=== PATIENT | female | born 1960 | race Caucasian/White ===

== ENCOUNTER → 2019-06-24 10:00 | Outpatient (BNVA) | payer MEDICARE, OTHER, SELFPAY | PROVIDERS: PCP Family Medicine; Referring Provider Family Medicine; Visit Provider Internal Medicine Rheumatology | DX: M34.9 Systemic sclerosis, unspecified (principal); Z79.899 Other long term (current) drug therapy; L03.012 Cellulitis of left finger; M35.00 Sjogren syndrome, unspecified; E55.9 Vitamin D deficiency, unspecified; L98.491 Non-pressure chronic ulcer of skin of other sites limited to breakdown of skin | CPT/HCPCS: 36415; 80053; 85007; 85027; 99214 ==

== ENCOUNTER → 2021-11-07 11:05 | Outpatient (BNVA) | payer MEDICARE, OTHER, SELFPAY | PROVIDERS: PCP Family Medicine; Referring Provider Internal Medicine Rheumatology; Visit Provider Specialist | DX: H54.62 Unqualified visual loss, left eye, normal vision right eye (principal); R53.1 Weakness | CPT/HCPCS: 99204 ==

== ENCOUNTER 2021-12-26 07:18 | Outpatient (CLI) | payer MEDICARE, OTHER, SELFPAY ==
--- NOTE | 2021-12-26 07:30 | MR_ITS ---
WS: [id number] MRA HEAD TECHNIQUE: Axial 3-D TOF images obtained with axial images and axial, sagittal, and coronal 2-D refor matted images. CLINICAL INFORMATION: R29.90 - Unspecified symptoms and signs involving the ner... COMPARISON: Outside MRI September 08, 2021 FINDINGS: LEFT ICA is occluded at the skull base. This can be further evaluated CTA neck. Petrous an d cavernous segments LEFT intracranial ICA appear occluded. This appears unchanged since the outside MRI September 08, 2021 Moderate intracranial atheromatous disease. Distal vertebral arteries are patent. Basilar artery is p atent. Somewhat diminutive basilar artery with dominant anterior circulation. Patent LEFT posterior c ommunicating artery with stenosis at the P-comm P1 junction. Distal PSYCHOLOGY ASSISTANT vessels appear patent. RIGHT ICA is patent at the skull base. Tortuous cavernous carotid artery. Hypoplastic A1 segments. No rmal vascularity to the RIGHT MCA territory. LEFT MCA fills via the posterior circulation with cross- filling from the anterior communicating artery with relatively normal vascularity to the LEFT MCA ter ritory. Small aneurysm or infundibulum RIGHT MCA trifurcation measuring 3 mm. MR/MR angio head wo con [id number] IMPRESSION: Some images degraded by motion artifact. 1. LEFT ICA is occluded at the skull base unchanged from the outside MRI. This can be further evaluated with CTA head and neck. 2. Dominant anterior circulation. Small but patent basilar artery. 3. Patent LEFT posterior communicating artery with stenosis at the P-comm/PSYCHOLOGY ASSISTANT junction. Normal vascularity to the distal PSYCHOLOGY ASSISTANT territories. 4. Relatively normal vascularity to the RYLEE and MCA territories bilaterally. 5. LEFT MCA territory fills via the posterior circulation and cross filling fr om the anterior communicating artery. 6. Small aneurysm or infundibulum RIGHT MCA trifurcation measuring 3 mm. 7. Moderate intracranial atheromatous disease.
== END 2021-12-26 07:19 | disposition home or self-care (01) ==
PROVIDERS: PCP Family Medicine; Visit Provider Specialist
DX: R29.90 Unspecified symptoms and signs involving the nervous system (principal)
CPT/HCPCS: 70544

== ENCOUNTER → 2021-12-28 10:35 | Outpatient (BNVA) | payer MEDICARE, OTHER, SELFPAY | PROVIDERS: PCP Family Medicine; Visit Provider Specialist | DX: H34.12 Central retinal artery occlusion, left eye (principal); I65.22 Occlusion and stenosis of left carotid artery; D68.51 Activated protein C resistance; M79.89 Other specified soft tissue disorders; M34.9 Systemic sclerosis, unspecified; M79.18 Myalgia, other site | CPT/HCPCS: 99214 ==

== ENCOUNTER 2022-01-26 08:53 | Outpatient (CLI) | payer MEDICARE, OTHER, SELFPAY ==
--- NOTE | 2022-01-26 09:30 | USCV_ITS ---
Andree Carr Age: 62 Gender: F : 1960 Exam Date: 01/26/2022 09:25 Ordering Phys: Princess Chase MD Technologist: Amber Chapman Exam Location: [facility] – [place] Indication: history of emboli , swellling PROCEDURES: Venous duplex imaging was performed in only the left lower extremity. The following venous structures were evaluated: common femoral vein, profunda vein, proximal portion of the greater saphenous vein, superficial femoral vein, and the popliteal vein. In addition, the posterior tibial and peroneal trunk were evaluated. FINDINGS: Normal 2-D Doppler and augmentation and compressibility throughout the lower extremity venous structures. Additional imaging through the proximal calf veins also reveals no thrombus. Limited evaluation of the greater saphenous vein is patent with no thrombus.. CONCLUSIONS No evidence of left lower extremity DVT. Frandy Tineo MD (Electronically Signed) Final Date: 26 January 2022 13:24 S
== END 2022-01-26 08:54 | disposition home or self-care (01) ==
LOC: RAD 08:54
PROVIDERS: PCP Family Medicine; Visit Provider Specialist
DX: I82.409 Acute embolism and thrombosis of unspecified deep veins of unspecified lower extremity (principal); M79.89 Other specified soft tissue disorders
CPT/HCPCS: 93971

== ENCOUNTER → 2022-03-07 09:59 | Outpatient (BNVA) | payer MEDICARE, OTHER, SELFPAY | PROVIDERS: PCP Family Medicine; Visit Provider Internal Medicine Cardiovascular Disease | DX: H34.10 Central retinal artery occlusion, unspecified eye (principal) | CPT/HCPCS: 99204 ==

== ENCOUNTER 2022-03-10 07:22 | Outpatient (CLI) | payer MEDICARE, OTHER, SELFPAY ==
--- NOTE | 2022-03-10 07:30 | MR_ITS ---
WS: [id number] MRA CAROTID ARTERIES HISTORY: I65.22 - Occlusion and stenosis of left carotid artery COMPARISON: Prior MR angiogram 12/26/2021 TECHNIQUE: MRA is performed without intravenous gadolinium. MIP and source images are reviewed. Right: Proximal common carotid artery is difficult to visualize due to the upper thorax. Mildly tortu ous but patent carotid artery. Internal and external carotid arteries are both patent. Beyond the sku ll base the carotid artery is very poorly visualized without IV contrast. No occlusions. Left: Small caliber LEFT common carotid artery as it arises from the arch. Towards the bifurcation th ere is smooth tapering of the common carotid artery. Prior to the skull base is a complete occlusion with loss of flow identified by MRI. LEFT ICA appears completely occluded beyond the skull base. Vertebral Arteries: Patent through the cervical region. Normal appearance to the basilar artery. The origins of each vertebral artery are not visualized. MR/MR angio neck wo con [id number] IMPRESSION: 1. Patent RIGHT cervical carotid artery with no significant stenosis. 2. Known occluded LEFT carotid artery beginning just proximal to the skull bas e. 3. Normal caliber vertebral arteries.
== END 2022-03-10 07:23 | disposition home or self-care (01) ==
LOC: RAD 07:23
PROVIDERS: PCP Family Medicine; Visit Provider Specialist
DX: I65.22 Occlusion and stenosis of left carotid artery (principal)
CPT/HCPCS: 70547

== ENCOUNTER → 2022-03-28 08:16 | Outpatient (BNVA) | payer MEDICARE, OTHER, SELFPAY | PROVIDERS: PCP Family Medicine; Visit Provider Specialist | DX: I65.22 Occlusion and stenosis of left carotid artery (principal); D68.51 Activated protein C resistance; Z86.79 Personal history of other diseases of the circulatory system | CPT/HCPCS: 99214 ==

== ENCOUNTER → 2022-11-27 14:01 | Outpatient (BNVA) | payer MEDICARE, OTHER, SELFPAY | PROVIDERS: PCP Family Medicine; Visit Provider Dermatology | DX: L85.8 Other specified epidermal thickening (principal) | CPT/HCPCS: 11102; 17110; 99202 ==

== ENCOUNTER → 2022-12-06 07:59 | Outpatient (BNVA) | payer MEDICARE, OTHER, SELFPAY | PROVIDERS: PCP Family Medicine; Visit Provider Dermatology | DX: C44.622 Squamous cell carcinoma of skin of right upper limb, including shoulder (principal) | CPT/HCPCS: 11603; 12034 ==

== ENCOUNTER → 2023-02-20 15:32 | Outpatient (BNVA) | payer MEDICARE, OTHER, SELFPAY | PROVIDERS: PCP Family Medicine; Visit Provider Dermatology | DX: L92.3 Foreign body granuloma of the skin and subcutaneous tissue (principal); L72.0 Epidermal cyst; L57.8 Other skin changes due to chronic exposure to nonionizing radiation; L81.4 Other melanin hyperpigmentation; L82.1 Other seborrheic keratosis; Z08 Encounter for follow-up examination after completed treatment for malignant neoplasm; Z85.828 Personal history of other malignant neoplasm of skin | CPT/HCPCS: 99213 ==

== ENCOUNTER 2023-02-26 06:00 | Outpatient (RCR) | payer MEDICARE, OTHER, SELFPAY | END 2023-03-20 23:59 | disposition home or self-care (01) | LOC: MOT 06:00 | PROVIDERS: Visit Provider Family Medicine | DX: R60.0 Localized edema (principal) | CPT/HCPCS: 97140; 97166 ==

== ENCOUNTER → 2023-03-14 14:34 | Outpatient (BNVA) | payer MEDICARE, OTHER, SELFPAY | PROVIDERS: Visit Provider Nurse Practitioner Family | DX: M79.604 Pain in right leg (principal); M25.571 Pain in right ankle and joints of right foot | CPT/HCPCS: 73590; 73610 ==

== ENCOUNTER 2023-03-26 14:11 | Outpatient (RCR) | payer MEDICARE, OTHER, SELFPAY | END 2023-03-28 23:59 | disposition home or self-care (01) | LOC: MOT 14:11 | PROVIDERS: Visit Provider Family Medicine | DX: R60.9 Edema, unspecified (principal) | CPT/HCPCS: 97140 ==

== ENCOUNTER → 2023-07-23 14:42 | Outpatient (BNVA) | payer MEDICARE, OTHER, SELFPAY | PROVIDERS: Visit Provider Dermatology | DX: D48.5 Neoplasm of uncertain behavior of skin (principal); L21.8 Other seborrheic dermatitis; B07.8 Other viral warts; L59.0 Erythema ab igne [dermatitis ab igne]; Z85.828 Personal history of other malignant neoplasm of skin; M34.83 Systemic sclerosis with polyneuropathy; M34.1 CR(E)ST syndrome | CPT/HCPCS: 99214 ==

== ENCOUNTER 2023-07-27 06:06 | Outpatient (CLI) | payer MEDICARE, OTHER, SELFPAY ==
--- NOTE | 2023-07-27 06:30 | USCV_ITS ---
Andree Carr Age: 63 Gender: F : 1960 Exam Date: 07/27/2023 06:26 Ordering Phys: Melia Merida Technologist: KEY Exam Location: [facility] – [place] Indication: Bruit Risk Factors: Previous Vascular Surgery: Right Brachial BP: / Left Brachial BP: / Right Left Velocity (cm/s) Spectral Plaque Velocity (cm/s) Spectral Plaque Syst/Diast Broadening Syst/Diast Broadening 106.10/18.00 Prox CCA 27.00 / 4.90 86.70/ 23.20 Mid CCA / 84.10/ 21.30 Distal CCA / 108.60/27.40 Prox ICA / 160.20/38.70 Mid ICA / 150.50/38.70 Distal ICA / 134.50 ECA 39.10 1.90 ICA/CCA 1.00 Antegrade Vertebral Antegrade 97.00/ 26.50 cm/s 67.30/ 29.10 cm/s Tri Subclavian Tri 172.3 67.70 0 CONCLUSIONS Right ICA stenosis <50%. Moderate atheromatous plaque right carotid bulb/ICA. Left ICA appears occluded. Tiny amount of flow proximal CCA. Recommend CTA in further evaluation Normal antegrade Doppler flow noted in the right vertebral artery. Normal antegrade Doppler flow noted in the left vertebral artery. Frandy Tineo MD (Electronically Signed) Final Date: 27 July 2023 13:41 S
== END 2023-07-27 06:07 | disposition home or self-care (01) ==
LOC: RAD 06:07
PROVIDERS: Visit Provider Nurse Practitioner Family
DX: I65.21 Occlusion and stenosis of right carotid artery (principal)
CPT/HCPCS: 93880

== ENCOUNTER → 2023-11-20 09:34 | Outpatient (BNVA) | payer MEDICARE, OTHER, SELFPAY | PROVIDERS: Visit Provider Nurse Practitioner Family | DX: D48.5 Neoplasm of uncertain behavior of skin (principal); L85.3 Xerosis cutis; L21.8 Other seborrheic dermatitis; M34.83 Systemic sclerosis with polyneuropathy; M34.1 CR(E)ST syndrome | CPT/HCPCS: 11102; 99214 ==

== ENCOUNTER → 2025-01-26 10:30 | Outpatient (BNVA) | payer MEDICARE, SELFPAY | PROVIDERS: Visit Provider Nurse Practitioner | DX: R19.7 Diarrhea, unspecified (principal) | CPT/HCPCS: 87045; 87324; 87427; 87449; 87493 ==